=== PATIENT | female | born 1995 | race Caucasian/White ===

== ENCOUNTER 2018-10-07 18:37 | Emergency (ER) | payer SELFPAY ==
[2018-10-07] MEDS: FAMOTIDINE 20 MG TAB PO (21:29)
[2018-10-07] MEDS: METHYLPREDNISOLONE 125 MG INJ IM (21:29)
[2018-10-07] MEDS: DIPHENHYDRAMINE 50 MG INJ IM (21:30)
== END 2018-10-07 21:58 | disposition home or self-care (01) ==
LOC: FTE 18:37
DX: R21 Rash and other nonspecific skin eruption (principal)
CPT/HCPCS: 96372; 99284-25